=== PATIENT | female | born 1950 | race Caucasian/White ===

== ENCOUNTER 2019-02-24 11:33 | Day surgery (SDC) | payer MEDICARE, OTHER, SELFPAY ==
[~2019-02-24] VITALS: Ht 157.5 cm; Wt 75.7 kg
[~2019-02-24 11:33] MED LIST: ACET325 PO; ALBU90OI; ALBU90OI61 INH; ASPI325B; ASPI81CH PO; ATEN50; AZIT500 PO; Acidophilus La1 EACH PO; Allergy25 M1 PO; BENAML10/5; CAND32; CHOL10002; CLOB.05TC TP; CLON.5; CLOP75; CYAN1000 PO; CYCL10 PO; DELTASONE20 MG PO; DEXA4 PO; DILT60 PO; Dyazide 37.5-21 EACH PO; FLUC100 PO; FURO20 PO; HYDACE5 PO; HYDCHL25; LOVA20; METO50 PO; METO50ER PO; METTREX2.5 PO; NAPR220 PO; NAPR500 PO; NEOMYCIN/POLYMYXIN/H; NEUPOGEN300 MCG/0. IJ; NITR.4SL; NYSTRITC TOP; OLME20 PO; OLME40 PO; OMEP20ER; OMEP20ER PO; ONDA8 PO; OXYACE5T PO; PANT40; POLY17UD PO; Pedi-Dri 100,0060 GM; QVAR7.3 G1 INH; RANI150 PO; SPIR25; SPIRIVA RESPIMAT4 GM IH; TRIHYD253B PO; VITNEPH PO; Zestril40 MG; Zestril40 MG PO
--- NOTE | 2019-02-24 12:49 | NUR ---
02/24/[address] POLK OF PT USING INHALERS 4XDAY AND SMOKING. PT HAS WHZ'S IN HER LEFT UPPER LUNG FIELD. ALBUTEROL UPDRAFT ORDERED/GIVEN
== END 2019-02-24 14:23 | disposition home or self-care (01) ==
LOC: ORSCSDS 11:33
PROVIDERS: Internal Medicine Gastroenterology
PROC: 0DBM8ZX Excision of Descending Colon, Via Natural or Artificial Opening Endoscopic, Diagnostic (ICD-10-PCS; principal; 2019-02-24 13:00)
PROC: 0DBN8ZX Excision of Sigmoid Colon, Via Natural or Artificial Opening Endoscopic, Diagnostic (ICD-10-PCS; principal; 2019-02-24 13:00)
DX: R19.4 Change in bowel habit (principal); K57.30 Diverticulosis of large intestine without perforation or abscess without bleeding; K63.5 Polyp of colon; K64.8 Other hemorrhoids; Z86.010 Personal history of colon polyps; I10 Essential (primary) hypertension; I25.10 Atherosclerotic heart disease of native coronary artery without angina pectoris; F17.210 Nicotine dependence, cigarettes, uncomplicated; J44.9 Chronic obstructive pulmonary disease, unspecified; Z99.81 Dependence on supplemental oxygen; Z79.899 Other long term (current) drug therapy
CPT/HCPCS: 88305; J2704; J7120

== ENCOUNTER → 2019-08-12 | Outpatient (CLI) | payer MEDICARE, OTHER | END | disposition home or self-care (01) | LOC: LAB SHORT 10:23 → LAB 10:23 | DX: L08.0 Pyoderma (principal) | CPT/HCPCS: 87070; 87077; 87147; 87186; 87205 ==

== ENCOUNTER → 2021-03-21 | Outpatient (CLI) | payer MEDICARE, OTHER | END | disposition home or self-care (01) | LOC: LAB SHORT 12:33 → LAB 12:33 | DX: L30.8 Other specified dermatitis (principal) | CPT/HCPCS: 88305; 88312 ==

== ENCOUNTER → 2021-07-11 | Outpatient (CLI) | payer MEDICARE, OTHER | END | disposition home or self-care (01) | LOC: LAB SHORT 12:00 → LAB 12:00 | DX: H60.23 Malignant otitis externa, bilateral (principal) | CPT/HCPCS: 87070; 87077; 87186 ==

== ENCOUNTER 2022-07-19 12:50 | Inpatient (IN) | payer MEDICARE, OTHER ==
[~2022-07-19] VITALS: Ht 157.5 cm; Wt 77.7 kg
[2022-07-19] MEDS ORDERED: SPIR25 PO (13:19)
[2022-07-19] MEDS ORDERED: FURO40 PO (13:20)
[2022-07-19 15:43] LABS: BASOPHILS ABSOLUTE AUTO 0.03 K/mm3 (0.00-0.23); BASOPHILS PERCENT AUTO 0 % (0-2); EOSINOPHILS PERCENT AUTO 3 % (0-6); Hematocrit 49.2 % (33.0-51.0); Hemoglobin 15.5 g/dL (11.5-16.0); IMMATURE GRAN ABSOLUTE AUTO 0.03 K/mm3 (0.00-0.10); IMMATURE GRAN PERCENT AUTO 0 % (0-1); LYMPHOCYTES ABSOLUTE AUTO 0.87 K/mm3 (0.84-5.20); LYMPHOCYTES PERCENT AUTO 11 % (21-46); MONOCYTES ABSOLUTE AUTO 0.34 K/mm3 (0.16-1.47); MONOCYTES PERCENT AUTO 4 % (4-13); Mean Corpuscular HGB 29.4 pg (26.0-34.0); Mean Corpuscular HGB Conc 31.5 g/dL (31.5-36.5); Mean Corpuscular Volume 93 fL (80-100); Mean Platelet Volume 9.7 fL (9.1-12.4); NEUTROPHILS ABSOLUTE AUTO 6.31 K/mm3 (1.96-9.15); NEUTROPHILS PERCENT AUTO 81 % (41-73); Platelet Count 203 K/mm3 (150-400); RDW Coefficient Variation 14.4 % (11.7-14.2); RDW Standard Deviation 49.1 fL (35.1-46.3); Red Blood Cell Count 5.27 M/mm3 (3.80-5.20); White Blood Cell Count 7.78 K/mm3 (4.00-11.30)
[2022-07-19 15:57] LABS: Albumin, Blood 4.1 g/dL (3.4-5.0); Albumin/Globulin Ratio 1.3 (0.8-1.8); Bilirubin, Total 0.5 mg/dL (0.1-1.0); Bun/Creatinine Ratio 17.5 (12.0-20.0); Calcium, Blood 9.7 mg/dL (8.5-10.1); Creatinine, Blood 1.2 mg/dL (0.40-1.00); Globulin, Blood 3.2 g/dL (2.2-4.0); Magnesium, Blood 1.7 mg/dL (1.6-2.4); Phosphorus, Blood 3.2 mg/dL (2.5-4.9); Potassium, Blood 4.5 mmol/L (3.5-5.5); Total Protein, Blood 7.3 g/dL (6.4-8.2)
--- NOTE | 2022-07-19 17:15 | NUR ---
1620 LAB CALLED ELEVATED TROPS 217. CALLED DR MORALES 162. DISCUSSED. HE WILL ORDER FOLLOWUP TROPS AND FOLLOW D-DIMER. NO ORDERS AT THIS TIME.
--- NOTE | 2022-07-19 17:17 | NUR ---
JUST PLACED IV LINE. HAD 3 RNS PERFORMING TASK. STARTED IVF.
--- NOTE | 2022-07-19 17:19 | NUR ---
PT ADMITTED WALK IN FROM [facility]. DID QUICK ADMIT AND MEDS. CALLED DR GALLEGOS. AFTER HE SAW PT. DID BALANCE OF ADMIT. HAD HARD TIME PLACING IV. THIS DONE, IVF STARTED.
--- NOTE | 2022-07-19 17:21 | NUR ---
PT PLEASANT SINCE ADMIT. HAS HAD ECHO, CHEST XRAY, IV PLACED. EKG. LABS DRAWN. PT PRESENTLY RESTING. SOME TIRED. ON 4L O2 AT THIS TIME. A/O X3, PLEASANT , DAUGHTER IN LAW IN ROOM. PT DENIES PAIN. H/R REG, NO MURMUR NOTED. NO TELE. ELEVATED TROPS AND D-DIMER. DR NOTIFIED. LUNGS WHEEZES T/O. DIM. PT STATES NO ISSUES WITH URINATION, BM LAST WAS TODAY. STATES NORMAL. 1 MIN ASST FWW TO BATHROOM.NO OTHER CONCERNS NOTED. BED IN LOW POSITION, CALL LITE IN REACH, CALLS APPROP
[2022-07-20 00:40] LABS: BASOPHILS ABSOLUTE AUTO 0.01 K/mm3 (0.00-0.23); BASOPHILS PERCENT AUTO 0 % (0-2); EOSINOPHILS ABSOLUTE AUTO 0.02 K/mm3 (0.00-0.68); EOSINOPHILS PERCENT AUTO 0 % (0-6); Hematocrit 45.4 % (33.0-51.0); Hemoglobin 14.4 g/dL (11.5-16.0); IMMATURE GRAN ABSOLUTE AUTO 0.02 K/mm3 (0.00-0.10); IMMATURE GRAN PERCENT AUTO 0 % (0-1); LYMPHOCYTES ABSOLUTE AUTO 0.46 K/mm3 (0.84-5.20); LYMPHOCYTES PERCENT AUTO 6 % (21-46); MONOCYTES ABSOLUTE AUTO 0.03 K/mm3 (0.16-1.47); MONOCYTES PERCENT AUTO 0 % (4-13); Mean Corpuscular HGB 29.1 pg (26.0-34.0); Mean Corpuscular HGB Conc 31.7 g/dL (31.5-36.5); Mean Corpuscular Volume 92 fL (80-100); Mean Platelet Volume 9.8 fL (9.1-12.4); NEUTROPHILS PERCENT AUTO 94 % (41-73); Platelet Count 191 K/mm3 (150-400); RDW Coefficient Variation 14.2 % (11.7-14.2); RDW Standard Deviation 48.5 fL (35.1-46.3); Red Blood Cell Count 4.94 M/mm3 (3.80-5.20); White Blood Cell Count 8.24 K/mm3 (4.00-11.30)
[2022-07-20 01:01] LABS: Albumin, Blood 3.6 g/dL (3.4-5.0); Albumin/Globulin Ratio 1.1 (0.8-1.8); Bilirubin, Total 0.5 mg/dL (0.1-1.0); Bun/Creatinine Ratio 19.4 (12.0-20.0); Calcium, Blood 9.5 mg/dL (8.5-10.1); Creatinine, Blood 1.44 mg/dL (0.40-1.00); Globulin, Blood 3.2 g/dL (2.2-4.0); Magnesium, Blood 1.6 mg/dL (1.6-2.4); Phosphorus, Blood 2.8 mg/dL (2.5-4.9); Potassium, Blood 4.5 mmol/L (3.5-5.5); Total Protein, Blood 6.8 g/dL (6.4-8.2)
--- NOTE | 2022-07-20 04:22 | NUR ---
SHIFT SUMMARY NOC PT A/OX4. PT ON O2 4L/NC WITH SPO2 OF 95%. PT TROPONIN STILL ELEVATED AT 165 BUT IS TRENDING DOWNWARD. PT D-DIMER ON 07/19/22 WAS .92 AND AM LABS ARE PENDING. PT HAS WHEEZES IN ALL ROWE. PT IS 1PA WITH FWW. PT HAD PT/OT EVAL 07/19/22. RT GAVE PT BREATHING TX DURING SHIFT. PT HAS 1/2 NS INFUSING AT @ 50mls/hr. PT HAD C/O LEG CRAMPS DURING BEGINNING OF SHIFT THAT SUBSIDED, WILL CONTINUE TO MONITOR. PT IS CURRENTLY RESTING WITH BED RAILS UP, BED IN LOWEST POSITION, AND CALL LIGHT WITHIN REACH.
--- NOTE | 2022-07-20 07:30 | NUR ---
recvd report from previous shift rn, pt sleeping in bed, bed rails up x 2, call light within reach, bed in lowest position.
--- NOTE | 2022-07-20 11:56 | NUR ---
0930-PT in with patient 1020-pt's daughter visiting 1140-pt receiving breathing treatment from RT
--- NOTE | 2022-07-20 13:34 | NUR ---
pt's peripheral IV infiltrated, multiple attempts by RN and optical sales associate failed to start peripheral IV. Awaiting power glide insertion by surgial floor RN. Pt notified of wait. Provider notified.
--- NOTE | 2022-07-20 17:15 | NUR ---
PT'S FAMILY MEMBER IN WITH PT. SHIF SUMMARY: VSS, NO ACUTE CHANGES. PT REMAINED A/O X 4, PLEASANT/COOPERATIVE, STANDBY ASSIST TO BATHROOM T/O SHIFT. PT HAS POWERGLIDE ELVIS STARTED THIS SHIFT. PT HAS TOLERATED PO INTAKE, HAS APPEARED TO HAVE NAPPED X 2 THIS SHIFT, HAS BEEN UP IN CHAIR X 2 THIS SHIFT.
--- NOTE | 2022-07-21 04:53 | NUR ---
SHIFT SUMMARY NOC PT A/OX4. VSS. STILL ON O2 4L/NC. PT EXHIBITS SOB UPON EXERTION. PT HAS A PRODUCTIVE COUGH WITH SCANT THICK SPUTUM. PG IN ELVIS IS PATENT AND DRAWS. PT PG IS CURRENTLY INFUSING 1/2 NS KVO. PT AMBULATING WELL WITH 1PA FWW. PT IS CURRENTLY AWAKE DRINKING WATER, WITH BED RAILS UP, BED IN LOWEST POSITION, AND CALL LIGHT WITHIN REACH.
[2022-07-21 07:32] LABS: Albumin, Blood 3.2 g/dL (3.4-5.0); Anion Gap 7 mmol/L (6-16); Blood Urea Nitrogen 35 mg/dL (8-24); Bun/Creatinine Ratio 27.8 (12.0-20.0); CO2, Blood 29 mmol/L (21-32); Calcium, Blood 9.2 mg/dL (8.5-10.1); Chloride, Blood 99 mmol/L (98-108); Creatinine, Blood 1.26 mg/dL (0.40-1.00); Glomerular Filtration Rate 46 (60-); Glucose, Blood 140 mg/dL (70-99); Phosphorus, Blood 3.6 mg/dL (2.5-4.9); Potassium, Blood 4.8 mmol/L (3.5-5.5); Sodium, Blood 135 mmol/L (136-145)
--- NOTE | 2022-07-21 11:26 | NUR ---
CARE ASSUMPTION THIS RN ASSUMED CARE AT 0700 FROM AMBAR BOWEN. VSAnalisa. PATIET IS ALERT AND ORIENTED X4. REPORTS NO PAIN,CHEST PAIN OR SHORTNESS OF BREATH. PATIENT ABD IS SOFT NONTENDER AND ACTIVE. SKIN IS INTACT. SEE SHIFT ASSESSMENT FOR FURTHER DETAILS. MD BURDEN IN THE ROOM AND DISCUSSED THE PLAN OF CARE WITH THE PATIENT. MD BURDEN AND THIS RN OFFERED ALTERNATIVE MEASURE TO SMOKING. PATIENT BECAME TEARFUL AND THERAOEUTIC COMMUNICATION WAS USED. THIS RN PRINTED OFF ADITIONAL INFORMATION AND OFFERE ADDITIONAL INFORMATION ON THE ZIN POUCHES THAT WERE DISCUSSED. PLAN IS TO DISCHARGE PATIENT TODAY WITH A HOME HEALTH REFERRAL. PATIENT VERABLIZES UNDERSTANDING AND AGREES WITH PLAN OF CARE. BED IS IN LOWEST POSITION AND CALL LIGHT WITHIN REACH.
[2022-07-21] MEDS ORDERED: Prinivil10 MG PO (13:12)
[2022-07-21] MEDS ORDERED: Prednisone50 MG PO (13:14)
[2022-07-21] MEDS ORDERED: GUAI600T33 PO (13:14)
[2022-07-21] MEDS ORDERED: NICO21TP TOP (13:14)
[2022-07-21] MEDS ORDERED: AMOCLA875 PO (13:15)
[2022-07-21] MEDS ORDERED: AZIT250 PO (13:16)
--- NOTE | 2022-07-21 16:50 | NUR ---
DISCHARGE NOTE THIS RN EDUCATED THE PATIENT ON NEW MEDICATIONS AND THE IMPORTANCE OF TAKING ALL ABX. THIS PATIENT EDUCATED THE PATIENT ON FOLLOW UP APPOINTMENTS. PATIENT VERBALIZED UNDERSTANDING. PATIENT HAS ALL BELONGINGS WITH THE PATIENT WHEN LEAVING AND DISCHARGE EDUCATION. PATIENT LEFT IN NO DISTRESS.
== END 2022-07-21 16:21 | disposition home health service (06) | DRG 189 ==
LOC: MEDS 12:50
PROVIDERS: Family Medicine; ADMIT Hospitalist
DX: J96.01 Acute respiratory failure with hypoxia (principal); J44.1 Chronic obstructive pulmonary disease with (acute) exacerbation; D80.1 Nonfamilial hypogammaglobulinemia; I50.32 Chronic diastolic (congestive) heart failure; I13.0 Hypertensive heart and chronic kidney disease with heart failure and stage 1 through stage 4 chronic kidney disease, or unspecified chronic kidney disease; Z66 Do not resuscitate; Z28.21 Immunization not carried out because of patient refusal; K21.9 Gastro-esophageal reflux disease without esophagitis; N18.30 Chronic kidney disease, stage 3 unspecified; M85.80 Other specified disorders of bone density and structure, unspecified site; I25.10 Atherosclerotic heart disease of native coronary artery without angina pectoris; E78.5 Hyperlipidemia, unspecified; M47.813 Spondylosis without myelopathy or radiculopathy, cervicothoracic region; F17.210 Nicotine dependence, cigarettes, uncomplicated; I71.43 Infrarenal abdominal aortic aneurysm, without rupture; L40.9 Psoriasis, unspecified; Z99.81 Dependence on supplemental oxygen; Z95.5 Presence of coronary angioplasty implant and graft; Z90.710 Acquired absence of both cervix and uterus; Z88.8 Allergy status to other drugs, medicaments and biological substances; Z79.51 Long term (current) use of inhaled steroids; Z79.899 Other long term (current) drug therapy
CPT/HCPCS: 36415; 71046; 80053; 80069; 83605; 83735; 83880; 84100; 84484; 85025; 85379; 87040; 93005; 93010; 93306; 94640; 94664; 94760; 96365; 96366; 96367; 96372; 96375; 96376; 97110; 97116; 97161; 97165; 97535; A9270; C1751; G0378; J0456; J0696; J1644; J1940; J2930; J3475; J7050; J7060

== ENCOUNTER 2022-08-17 08:24 | Inpatient (IN) | payer MEDICARE, OTHER ==
[~2022-08-17] VITALS: Ht 160 cm; Wt 80.1 kg
[~2022-08-17 08:24] MED LIST changes: +AMOCLA875 PO; +AZIT250 PO; +FURO40 PO; +GUAI600T33 PO; +NICO21TP TOP; +Prednisone50 MG PO; +Prinivil10 MG PO; +SPIR25 PO
[2022-08-17 09:04] LABS: BASOPHILS ABSOLUTE AUTO 0.05 K/mm3 (0.00-0.23); BASOPHILS PERCENT AUTO 1 % (0-2); EOSINOPHILS PERCENT AUTO 1 % (0-6); Hematocrit 41.1 % (33.0-51.0); IMMATURE GRAN ABSOLUTE AUTO 0.05 K/mm3 (0.00-0.10); IMMATURE GRAN PERCENT AUTO 1 % (0-1); LYMPHOCYTES ABSOLUTE AUTO 1.33 K/mm3 (0.84-5.20); LYMPHOCYTES PERCENT AUTO 13 % (21-46); MONOCYTES ABSOLUTE AUTO 0.48 K/mm3 (0.16-1.47); MONOCYTES PERCENT AUTO 5 % (4-13); Mean Corpuscular HGB 29.2 pg (26.0-34.0); Mean Corpuscular HGB Conc 31.6 g/dL (31.5-36.5); Mean Corpuscular Volume 92 fL (80-100); Mean Platelet Volume 9.6 fL (9.1-12.4); NEUTROPHILS PERCENT AUTO 80 % (41-73); Platelet Count 267 K/mm3 (150-400); RDW Coefficient Variation 14.7 % (11.7-14.2); RDW Standard Deviation 49.1 fL (35.1-46.3); Red Blood Cell Count 4.45 M/mm3 (3.80-5.20); White Blood Cell Count 10.31 K/mm3 (4.00-11.30)
[2022-08-17 09:19] LABS: Albumin, Blood 3.5 g/dL (3.4-5.0); Albumin/Globulin Ratio 1.1 (0.8-1.8); Bilirubin, Total 0.4 mg/dL (0.1-1.0); Bun/Creatinine Ratio 21.4 (12.0-20.0); Calcium, Blood 8.7 mg/dL (8.5-10.1); Creatinine, Blood 1.31 mg/dL (0.40-1.00); Globulin, Blood 3.1 g/dL (2.2-4.0); Potassium, Blood 3.7 mmol/L (3.5-5.5); Total Protein, Blood 6.6 g/dL (6.4-8.2)
[2022-08-17 10:03] LABS: Influenza A, PCR NEGATIVE (NEGATIVE); Influenza B, PCR NEGATIVE (NEGATIVE); Resp Syncytial Virus, PCR NEGATIVE (NEGATIVE); SARS-Cov-2 (COVID-19) PCR, MMC NEGATIVE (NEGATIVE)
[2022-08-17] MEDS ORDERED: ELIQUIS5 M2 PO (17:06)
[2022-08-17] MEDS ORDERED: BUPROPION XL150 M1 PO (17:08)
--- NOTE | 2022-08-17 18:45 | NUR ---
ADMIT 1700 FULL CODE, ALLERGY TO PROCAINE AND IRBESARTAN. 72 YEar old FEMALE RESPIRATORY FAILURE SECONDARY TO PNEUMONIA APPEARS TO BE THE DIAGNOSIS. patient has a history of cad, gerd, htn, ckd iii, NON HODGKINS LYMPHOMA, CERVICAL THORASIC SPONDYLOSIS, OSTEOPENIA, PSORIASIS, DIASTOLIC DYSFUNCTION PATIENT IS ON ADA DIET BECASUE OF STEROID ADMINISTRATION PER DR RIVERA, SHE IS NOT DIABETIC. PATIENT USES 2 LITERS O2 BASELINE AT HOME. SINCE ER SHE HAS BEEN ON 2-3 NC. IV FLUID (NS WITH K) IS RUNNING AT 100. SOLUMEDEROL WAS GIVEN AT 1757, SO THE NEXT DOSE SHOULD BE 8 HOURS THERE AFTER. PATIENT IS ALERT AND ORIENTATED AND ABLE TO MAKE NEEDS KNOWN. SHE IS UP THE THE BATHROOM WITH SBA (DIZZY DUE TO FENTYNL IN ER) AT HOME SHE AMBULATES WITHOUT A WALKER AND LIVES ALONE. PATIENT WAS INSTRUCTED ON THE USE OF THE CALL LIGHT, RESPONSE TEAM, AND FALL PRECAUTIONS. ADMISSION IN PROGRESS. ALT AND AST HIGH. GFR LOW (44)
[2022-08-18 01:19] LABS: BASOPHILS ABSOLUTE AUTO 0.01 K/mm3 (0.00-0.23); BASOPHILS PERCENT AUTO 0 % (0-2); EOSINOPHILS PERCENT AUTO 0 % (0-6); Hematocrit 36.8 % (33.0-51.0); Hemoglobin 11.8 g/dL (11.5-16.0); IMMATURE GRAN ABSOLUTE AUTO 0.05 K/mm3 (0.00-0.10); IMMATURE GRAN PERCENT AUTO 1 % (0-1); LYMPHOCYTES ABSOLUTE AUTO 0.35 K/mm3 (0.84-5.20); LYMPHOCYTES PERCENT AUTO 5 % (21-46); MONOCYTES PERCENT AUTO 3 % (4-13); Mean Corpuscular HGB 29.8 pg (26.0-34.0); Mean Corpuscular HGB Conc 32.1 g/dL (31.5-36.5); Mean Corpuscular Volume 93 fL (80-100); Mean Platelet Volume 9.8 fL (9.1-12.4); NEUTROPHILS PERCENT AUTO 92 % (41-73); Platelet Count 205 K/mm3 (150-400); RDW Coefficient Variation 14.5 % (11.7-14.2); RDW Standard Deviation 48.9 fL (35.1-46.3); Red Blood Cell Count 3.96 M/mm3 (3.80-5.20); White Blood Cell Count 7.41 K/mm3 (4.00-11.30)
[2022-08-18 01:39] LABS: Bilirubin, Total 0.3 mg/dL (0.1-1.0); Bun/Creatinine Ratio 21.5 (12.0-20.0); Calcium, Blood 8.2 mg/dL (8.5-10.1); Creatinine, Blood 1.3 mg/dL (0.40-1.00); Potassium, Blood 4.9 mmol/L (3.5-5.5)
--- NOTE | 2022-08-18 06:12 | NUR ---
ACUTE EVENT APROX 2130 DURING MED PASS/ASSESSMENT RCVD CALL F/PUNCH FINISHER; HOWARD PORTILLO; TECH REPORTING PT WAS SHOWING ST ELEVATION IN MUTIPLE LEADS. AT SAME TIME PT BEGAN T/EXPERIENCE CHEST PAIN RADIATING TO HER BACK AND SUDDEN INDIGESTION. MADE TWO ATTEMPTS TO GET EKG; READINGS WERE DIFFICULT TO GET BECAUSE PT WAS TREMULOUS. CALL TO DR JOINER TO INFORM. NEW ORDER TO TREAT PAIN WITH FENTANYL 25MCG AND ATTEMPT NEW EKG. NEW TROPONIN LAB 71. FINAL EKG SHOWED SINUS RHYTHM W/1ST DEGREE AV BLOCK WITH PREMATURE SUPRAVENTRICULAR COMPLEX. HOWARD PORTILLO/Yandex UPDATED ST ELEVATION UNDER 2. NOTIFIED; WILL CONT T/MONITOR. PT REPORTING PAIN HAD RESOLVED.
--- NOTE | 2022-08-18 06:25 | NUR ---
SUBASSEMBLY ASSEMBLER SUMMARY EPISODE OF ST ELEVATION AND PT C/O CHEST PAIN; SEE ALT NOTE ABOUT ACUTE EVENT. PT A/OX4. PLEASANT AND COOPERATIVE. SBA W/FWW T/THE BATHROOM. ON 3L 02 NC; ON TELE; SINUS W/BBB AND ST ELEVATION; 84 BPM. ABLE T/MAKE NEEDS KNOWN AND USES CALL LIGHT APPROPRIATELY. RT AT BEDSIDE T/O THE NIGHT W/BREATHING TREATMENTS AND MONITORING A SLEEP STUDY. PT SLEEP STUDY STARTED LATE AND MULTIPLE INTERUPTIONS DUE TO CARDIAC EVENT/LAB. RT STATES WILL LIKELY REPEAT STUDY AGAIN. PT WAS ABLE TO SLEEP INTERMITTANTLY AND AFTER EVENT HAD ONE MORE EPISODE OF BRIEF CHEST PAIN RADIATING T/BACK WHICH RESOLVED; PER TELE NO CHANGES DURING EPISODE OF CP. OBSERVED HARSH COUGH; UNPRODUCTIVE. PT ON 3L NC BUT HAVING PERIODIC EPISODES OF DESAT INTO 80'S WHEN COUGHING. CALL LIGHT IN REACH.
--- NOTE | 2022-08-18 16:01 | NUR ---
PATIENT HAS HAD NO COMPLAINTS OF CHEST PAIN THIS SHIFT. [employer] HAS NOT CALLED TO REPORT ANY ADVERSE EVENTS SO FAR. SHE DID HAVE ESOPHAGEAL PAIN WITH SWALLOWING PREVIOUS NURSING NOTE STATES. PATIENT FINISHED 2ND BAG OF NACL, WITH K AT 1545. SHE IS REQUESTING AN ORDER FOR NATURAL TEARS (SYSTANE). WE WILL CHECK WITH THE PROVIDER UPON HIS ARRIVAL.
--- NOTE | 2022-08-18 17:31 | NUR ---
PATIENT HAVING NO EPISODES OF CHEST PAIN THIS SHIFT. NS WITH K FINISHED UP LATE THIS AFTERNOON. PROVIDER MIGUEL HERE NOW. NEW ORDERS FOR ECHO AND TROP. PATIENT ALERT AND ABLE TO STATE NEEDS. ECHO ORDERED BECAUSE OF BNP ELEVATION AND CONDITION. DESIRE TO SEE ANY ACUTE EVENTS WITH LAB AND TESTS.
--- NOTE | 2022-08-18 18:39 | NUR ---
#2 SHIFT SUMMARY- DR. RIVERA WAS HERE, ORDERED ECHO AND SERIES OF TROP. PATIENT IS ABLE TO EAT DINNER. SHE IS ASYMPTOMATIC OF CHEST PAIN. TELE CALLED AND REPORTED ST EVEVATION. PATIENT HAS NO CHANGE. 40 MG IV LASIX STAT WAS GIVEN. PROVIDER WANTED PLAN PASSED HANNA THAT THE ECHO WOULD HAPPEN IN THE MORNING, THE SERIES OF TROPONIN WOULD BE COMPLETED, AND TO NOTE THAT THE LAST TIME THIS PATIENT ADMITTED FOR SIMILAR EVENTS, THE SAME SYMPTOMS AND RESULTS WERE SEEN, BUT NO SIGNIFICANT EVENT TOOK PLACE.
--- NOTE | 2022-08-18 20:17 | NUR ---
CARDIAC EVENT/EKG PT C/O MILD CHEST PAIN. CALL T/HOT WORT SETTLER, HOWARD LINDSEY--TECH REPORTS ST ELEVATION BETWEEN 2-3. EKG DONE SHOWING AFIB W/RVR, 107 BPM. PT REPORTS SHE TAKES METOPROLOL 25MG 2X DAILY--LAST TAKEN 08/16/[address] HICKS. ORDER T/RESTART METOPROLOL NOW, AND NEW ORDER FOR 81MG ASPRIN DAILY. DR Mata/REVIEW EKG AND FOLLOW UP. PT SHEDULED F/ECHO AM TOMORROW. PT A/OX4 W/MILD CHEST PAIN AND FEELING SOB; PT SATURTATIONS 93%. WILL CONT T/MONITOR; PT DAUGHTER AT BEDSIDE. EDUCATE PT T/CONTACT W/ANY PAIN OR CHANGES.
[2022-08-18 22:45] LABS: International Normalized Ratio 1.12; Prothrombin Time Results 11.7 Sec (9.7-11.5)
[2022-08-18 22:46] LABS: Anti-Xa UFH, PHA Monitoring 1.28 IU/mL
[2022-08-19 01:33] LABS: Bun/Creatinine Ratio 23.1 (12.0-20.0); Calcium, Blood 8.9 mg/dL (8.5-10.1); Creatinine, Blood 1.47 mg/dL (0.40-1.00); Magnesium, Blood 1.8 mg/dL (1.6-2.4); Potassium, Blood 4.5 mmol/L (3.5-5.5)
--- NOTE | 2022-08-19 01:53 | NUR ---
PT TRANSFER NOTE PT TRANSFERED TO PCU 2 PT HAVING CHEST PAIN INTERMITTANTLY FOR LAST 24HRS; TELE REPORTED RUN OF 6 BEAT RUN OF SVT, ST ELEVATION ABOVE 3, HR SPIKING UP IN 160'S AND SUSTAINING IN 130/140'S. CALL T/DR BRAND; ORDER F/10MG CAREDIZEM PUSH AND NEW EKG; EKG READ AFIB W/RVR 123BPM. UPDATED DR BRAND OF RESULTS--ORDER F/XFER T/PCU FOR CARDIZEM DRIP.
--- NOTE | 2022-08-19 03:49 | NUR ---
PT TRANSFER TO PCU 2: PT ARRIVED TO UNIT AT 0211. PT IS A&O UPON ARRIVAL; VERY PLEASANT AND PARTICIPATING IN CONVERSATIONS APPROPRIATELY. PT ON NV @ 3LPM UPON ARRIVAL; SPO2 92<. PT LUNGS SOUNDS CLEAR WITH DIM BASES. AFIB WITH RVR ON MONITOR; HR IN 90-130'S AND SBP 120-130. PT HAS R. UPPER CHEST PAIN, 7/10, AT THIS TIME. CARDIZEM DRIP INTIATED AT 5. PT STATES POLYURIA SINCE STARTING LASIX; PUREWIICK PLACED AND ON CONTINUOUS SUCTIONING. PT PLACED IN GOWN AND PERSONAL ITEMS STORED IN PT BAG. PT HAS NO OTHER C/O PAIN. HYPERACTIVE BS IN ALL QUADRANTS; ABD OBESE, ROUND AND NON-TENDER. PPP X 4, WARM EXTREMITIES. PT USES CALL LIGHT APPROPRIATELY, BED LOWERED, WILL CONTINUE TO MONITOR.
[2022-08-19 04:34] LABS: Albumin, Blood 3.4 g/dL (3.4-5.0); Albumin/Globulin Ratio 1.1 (0.8-1.8); Bilirubin, Total 0.3 mg/dL (0.1-1.0); Bun/Creatinine Ratio 25.4 (12.0-20.0); Calcium, Blood 9.2 mg/dL (8.5-10.1); Creatinine, Blood 1.42 mg/dL (0.40-1.00); Globulin, Blood 3.2 g/dL (2.2-4.0); Potassium, Blood 4.2 mmol/L (3.5-5.5); Total Protein, Blood 6.6 g/dL (6.4-8.2)
--- NOTE | 2022-08-19 06:26 | NUR ---
SHIFT SUMMARY: NO ACUTE CHANGES. PT HAS SLEPT SINCE TRANSFERRED TO UNIT. CARDIZEM GTT @ 5; AFIB RYTHYM ON MONITOR WITH HR 70-90, SBP 100-110. NC @ 4 LPM TO MAINTAIN O2 SATS. PT C/O EXERTIONAL DSPNEA WHEN REPOSITIONING IN BED. MED FLOOR RN, KATYA, NOTIFIED THIS RN OF MULT ATTEMPTS TO CONTACT PT'S DAUGHTER REGARDING TRANSFER. PT NOTIFED THAT DAUGHTER WAS NOT REACHABLE AT THIS TIME; PT STATED SHE WOULD TRY AND GET IN CONTACT WITH HER. WILL PASS THIS INFO TO DAY SHIFT RN. WILL CONTINUE TO MONITOR UNTIL ONCOMING RN ARRIVES.
--- NOTE | 2022-08-19 07:00 | NUR ---
ASSUME CARE: I have assumed care of this patient.
--- NOTE | 2022-08-19 19:03 | NUR ---
SHIFT SUMMARY: pt up to chair and to commode with standby assist. Cardizem drip stopped around ten this morning for bradycardia. Cardiology consulted this afternoon. Tolerated meals well.
[2022-08-20 04:38] LABS: Calcium, Blood 9.2 mg/dL (8.5-10.1); Creatinine, Blood 1.68 mg/dL (0.40-1.00); Magnesium, Blood 1.7 mg/dL (1.6-2.4); Potassium, Blood 3.7 mmol/L (3.5-5.5); Thyroid Stimulating Hormone 0.607 uIU/mL (0.360-4.800)
--- NOTE | 2022-08-20 06:25 | NUR ---
SHIFT SUMMARY A/OX4, IND TO BSC. DENIES PAIN OR SOB. CURRENTLY ON 3L VIA NC WITH SATS GREATER THAN 92. TELE SR/AFIB T/O NIGHT WITH HR RANGING FROM 70'S-100. VSS, NO ACUTE CHANGES AT THIS TIME. BED IN LOWEST POSITION WITH CALL LIGHT IN REACH. WILL CONTINUE TO MONITOR AND REPORT TO ONCOMING RN.
[2022-08-20 10:23] LABS: BASOPHILS ABSOLUTE AUTO 0.01 K/mm3 (0.00-0.23); BASOPHILS PERCENT AUTO 0 % (0-2); EOSINOPHILS PERCENT AUTO 0 % (0-6); Hematocrit 41.7 % (33.0-51.0); Hemoglobin 13.5 g/dL (11.5-16.0); IMMATURE GRAN ABSOLUTE AUTO 0.17 K/mm3 (0.00-0.10); IMMATURE GRAN PERCENT AUTO 2 % (0-1); LYMPHOCYTES ABSOLUTE AUTO 0.39 K/mm3 (0.84-5.20); LYMPHOCYTES PERCENT AUTO 4 % (21-46); MONOCYTES ABSOLUTE AUTO 0.21 K/mm3 (0.16-1.47); MONOCYTES PERCENT AUTO 2 % (4-13); Mean Corpuscular HGB Conc 32.4 g/dL (31.5-36.5); Mean Corpuscular Volume 90 fL (80-100); Mean Platelet Volume 10.3 fL (9.1-12.4); NEUTROPHILS ABSOLUTE AUTO 8.12 K/mm3 (1.96-9.15); NEUTROPHILS PERCENT AUTO 91 % (41-73); Platelet Count 235 K/mm3 (150-400); RDW Coefficient Variation 14.7 % (11.7-14.2); RDW Standard Deviation 46.9 fL (35.1-46.3); Red Blood Cell Count 4.65 M/mm3 (3.80-5.20)
--- NOTE | 2022-08-20 17:47 | NUR ---
SHIFT SUMMARY PT ALERT, FOLLOWS COMMANDS. SP02>90% ON 2L NC. PT STATED HER BREATHING FEELS "MUCH BETTER" TODAY. VSS, SEE VITALS. PT C/O OF TROUBLE SWALLOWING BREAKFAST. STATES HX OF HIATAL HERNIA, AND OCCASIONALLY "FOOD GETS STUCK". MD LEDESMA NOTIFIED AND W/ ORDERS FOR 1 TIME DOSE OF PRILOSEC, WHICH PT TAKES AT HOME FOR THIS ISSUE. PT STATES NO ISSUE THIS AFTERNOON/EVENING. PT RESTED IN ROOM TODAY, STATE SHE DID NOT SLEEP MUCH LAST NIGHT. CALL LIGHT IN REACH.
[2022-08-21 03:56] LABS: BASOPHILS ABSOLUTE AUTO 0.02 K/mm3 (0.00-0.23); BASOPHILS PERCENT AUTO 0 % (0-2); EOSINOPHILS ABSOLUTE AUTO 0.01 K/mm3 (0.00-0.68); EOSINOPHILS PERCENT AUTO 0 % (0-6); Hematocrit 41.1 % (33.0-51.0); Hemoglobin 13.2 g/dL (11.5-16.0); IMMATURE GRAN PERCENT AUTO 2 % (0-1); LYMPHOCYTES ABSOLUTE AUTO 0.49 K/mm3 (0.84-5.20); LYMPHOCYTES PERCENT AUTO 5 % (21-46); MONOCYTES ABSOLUTE AUTO 0.25 K/mm3 (0.16-1.47); MONOCYTES PERCENT AUTO 3 % (4-13); Mean Corpuscular HGB 28.8 pg (26.0-34.0); Mean Corpuscular HGB Conc 32.1 g/dL (31.5-36.5); Mean Corpuscular Volume 90 fL (80-100); Mean Platelet Volume 10.1 fL (9.1-12.4); NEUTROPHILS ABSOLUTE AUTO 8.64 K/mm3 (1.96-9.15); NEUTROPHILS PERCENT AUTO 90 % (41-73); Platelet Count 231 K/mm3 (150-400); RDW Coefficient Variation 14.6 % (11.7-14.2); RDW Standard Deviation 46.6 fL (35.1-46.3); Red Blood Cell Count 4.59 M/mm3 (3.80-5.20); White Blood Cell Count 9.61 K/mm3 (4.00-11.30)
[2022-08-21 04:30] LABS: Bun/Creatinine Ratio 35.3 (12.0-20.0); Calcium, Blood 8.7 mg/dL (8.5-10.1); Creatinine, Blood 1.56 mg/dL (0.40-1.00); Potassium, Blood 3.8 mmol/L (3.5-5.5)
--- NOTE | 2022-08-21 06:27 | NUR ---
SHIFT SUMMARY A/O X4, IND TO BSC. DENIES PAIN OR SOB. TELE SR/AFIB FLIPS. CURRENTLY ON 3L VIA NC WITH SATS GREATER THAN 92. VSS, NO ACUTE CHANGES AT THIS TIME. BED IN LOWEST POSITION WITH CALL LIGHT IN REACH. WILL CONTINUE TO MONITOR AND REPORT TO ONCOMING RN.
[2022-08-21] MEDS ORDERED: TORSE20 PO (12:31)
[2022-08-21] MEDS ORDERED: ASPI81CH PO (12:32)
[2022-08-21] MEDS ORDERED: Acetaminophen325 M1 PO (12:32)
[2022-08-21] MEDS ORDERED: ATOR20 PO (12:33)
[2022-08-21] MEDS ORDERED: JARDIANCE10 MG PO (12:34)
[2022-08-21] MEDS ORDERED: Isosorbide Mono30 MG PO ×2 (12:35)
[2022-08-21] MEDS ORDERED: METO50ER PO ×2 (12:36)
[2022-08-21] MEDS ORDERED: SPIR25 PO (12:38)
[2022-08-21] MEDS ORDERED: NITR.4SL SL (12:38)
[2022-08-21] MEDS ORDERED: VISBIOME 112.51 EACH PO ×2 (12:39)
--- NOTE | 2022-08-21 16:19 | NUR ---
DISCHARGE HOME PT A&O X4. VSS. MONITOR SHOWING SR W/ RATE INDUCED ABBERANCY. SPO2 > 92% ON RA. PIV REMOVED. DISCHARGE INSTRUCTIONS REVIEWED W/ PT & SENT HOME W/ PT. PT TAKEN OUT BY WHEELCHAIR W/ BELONGINGS @ APPROX 1500.
== END 2022-08-21 15:45 | disposition home health service (06) | DRG 193 ==
LOC: ER 08:24 → MEDS 15:08 → PCU 15:08 → MEDS 17:01 → PCU 08-19 02:07
PROVIDERS: Emergency Medicine; Family Medicine; Internal Medicine; Internal Medicine Cardiovascular Disease; ADMIT Internal Medicine Endocrinology, Diabetes & Metabolism
DX: J18.9 Pneumonia, unspecified organism (principal); I50.43 Acute on chronic combined systolic (congestive) and diastolic (congestive) heart failure; J96.21 Acute and chronic respiratory failure with hypoxia; J44.1 Chronic obstructive pulmonary disease with (acute) exacerbation; I13.0 Hypertensive heart and chronic kidney disease with heart failure and stage 1 through stage 4 chronic kidney disease, or unspecified chronic kidney disease; J44.0 Chronic obstructive pulmonary disease with (acute) lower respiratory infection; I47.1 Supraventricular tachycardia; D80.1 Nonfamilial hypogammaglobulinemia; Z66 Do not resuscitate; K21.9 Gastro-esophageal reflux disease without esophagitis; N18.30 Chronic kidney disease, stage 3 unspecified; R13.10 Dysphagia, unspecified; R77.8 Other specified abnormalities of plasma proteins; F17.210 Nicotine dependence, cigarettes, uncomplicated; L40.9 Psoriasis, unspecified; I48.0 Paroxysmal atrial fibrillation; I25.10 Atherosclerotic heart disease of native coronary artery without angina pectoris; E78.5 Hyperlipidemia, unspecified; M85.80 Other specified disorders of bone density and structure, unspecified site; M47.892 Other spondylosis, cervical region; L30.9 Dermatitis, unspecified; I70.8 Atherosclerosis of other arteries; M47.894 Other spondylosis, thoracic region; I71.43 Infrarenal abdominal aortic aneurysm, without rupture; I08.1 Rheumatic disorders of both mitral and tricuspid valves; K44.9 Diaphragmatic hernia without obstruction or gangrene; Z20.822 Contact with and (suspected) exposure to COVID-19; Z85.72 Personal history of non-Hodgkin lymphomas; Z98.51 Tubal ligation status; Z88.8 Allergy status to other drugs, medicaments and biological substances; Z99.81 Dependence on supplemental oxygen; Z79.899 Other long term (current) drug therapy; Z79.01 Long term (current) use of anticoagulants; Z79.811 Long term (current) use of aromatase inhibitors; Z79.2 Long term (current) use of antibiotics; Z79.52 Long term (current) use of systemic steroids; Z79.51 Long term (current) use of inhaled steroids; Z92.21 Personal history of antineoplastic chemotherapy; Z98.890 Other specified postprocedural states; Z90.710 Acquired absence of both cervix and uterus; Z95.5 Presence of coronary angioplasty implant and graft; Z79.82 Long term (current) use of aspirin; Z86.79 Personal history of other diseases of the circulatory system
CPT/HCPCS: 0241U; 36415; 71045; 80048; 80053; 83735; 83880; 84145; 84443; 84484; 85025; 85520; 85610; 85730; 93005; 93010; 93308; 94640; 94644; 94645; 94664; 94760; 94761; 94762; 96365; 96367; 96368; 96375; 97116; 97162; 99285-25; A9270; J0456; J0696; J1940; J1956; J2405; J2920; J2930; J3010; J3475; J3480; J7050

== ENCOUNTER 2022-08-24 15:46 | Inpatient (IN) | payer MEDICARE, OTHER ==
[~2022-08-24] VITALS: Ht 162.6 cm; Wt 71.3 kg
[~2022-08-24 15:46] MED LIST changes: +ATOR20 PO; +Acetaminophen325 M1 PO; +BUPROPION XL150 M1 PO; +ELIQUIS5 M2 PO; +Isosorbide Mono30 MG PO; +JARDIANCE10 MG PO; +NITR.4SL SL; +TORSE20 PO; +VISBIOME 112.51 EACH PO
[2022-08-24 16:25] LABS: BASOPHILS ABSOLUTE AUTO 0.02 K/mm3 (0.00-0.23); BASOPHILS PERCENT AUTO 0 % (0-2); EOSINOPHILS ABSOLUTE AUTO 0.01 K/mm3 (0.00-0.68); EOSINOPHILS PERCENT AUTO 0 % (0-6); Hematocrit 49.6 % (33.0-51.0); Hemoglobin 16.3 g/dL (11.5-16.0); IMMATURE GRAN ABSOLUTE AUTO 0.09 K/mm3 (0.00-0.10); IMMATURE GRAN PERCENT AUTO 1 % (0-1); LYMPHOCYTES ABSOLUTE AUTO 0.28 K/mm3 (0.84-5.20); LYMPHOCYTES PERCENT AUTO 3 % (21-46); MONOCYTES ABSOLUTE AUTO 0.62 K/mm3 (0.16-1.47); MONOCYTES PERCENT AUTO 6 % (4-13); Mean Corpuscular HGB 29.2 pg (26.0-34.0); Mean Corpuscular HGB Conc 32.9 g/dL (31.5-36.5); Mean Corpuscular Volume 89 fL (80-100); Mean Platelet Volume 10.4 fL (9.1-12.4); NEUTROPHILS ABSOLUTE AUTO 9.21 K/mm3 (1.96-9.15); NEUTROPHILS PERCENT AUTO 90 % (41-73); Platelet Count 179 K/mm3 (150-400); RDW Standard Deviation 47.7 fL (35.1-46.3); Red Blood Cell Count 5.59 M/mm3 (3.80-5.20); White Blood Cell Count 10.23 K/mm3 (4.00-11.30)
[2022-08-24 16:54] LABS: Albumin, Blood 3.5 g/dL (3.4-5.0); Bun/Creatinine Ratio 25.8 (12.0-20.0); Creatinine, Blood 1.63 mg/dL (0.40-1.00); Globulin, Blood 3.4 g/dL (2.2-4.0); Potassium, Blood 3.9 mmol/L (3.5-5.5); Total Protein, Blood 6.9 g/dL (6.4-8.2)
[2022-08-24 20:25] LABS: Influenza B, PCR NEGATIVE (NEGATIVE); Resp Syncytial Virus, PCR NEGATIVE (NEGATIVE); SARS-Cov-2 (COVID-19) PCR, MMC NEGATIVE (NEGATIVE)
[2022-08-24 20:26] LABS: Influenza A, PCR POSITIVE (NEGATIVE)
[2022-08-25 03:31] LABS: Hematocrit 49.3 % (33.0-51.0); Hemoglobin 16.1 g/dL (11.5-16.0); Mean Corpuscular HGB 29.1 pg (26.0-34.0); Mean Corpuscular HGB Conc 32.7 g/dL (31.5-36.5); Mean Corpuscular Volume 89 fL (80-100); Platelet Count 152 K/mm3 (150-400); Red Blood Cell Count 5.53 M/mm3 (3.80-5.20); White Blood Cell Count 7.37 K/mm3 (4.00-11.30)
[2022-08-25 03:53] LABS: Bun/Creatinine Ratio 27.5 (12.0-20.0); Calcium, Blood 8.8 mg/dL (8.5-10.1); Creatinine, Blood 1.67 mg/dL (0.40-1.00); Magnesium, Blood 2.4 mg/dL (1.6-2.4); Potassium, Blood 3.4 mmol/L (3.5-5.5)
--- NOTE | 2022-08-25 06:42 | NUR ---
SHIFT SUMMARY: PT ADMITTED OVER SHIFT. ARRIVED FORM ED ON BIPAP. TRANSFERED TO BED VIA SLIDERSHEET. PT IS A&OX4 BUT MINIMAL ABILITY TO COMMUNICATE DUE TO BIPAP MASK AND HR INCREASING TO 150 WITH EFFORT OF SPEECH. HR IN A-FIB RVR, BETWEEN 80'S WHEN SLEEPING 120'S WHEN AWAKE WITH OCCASIONAL SPIKES TO 150 THAT RETURNS BACK DOWN TO 120'S. IV LOPRESSOR HELD DUE TO SOFT BP'S, MAP > 65. PT IS TACHYPNEIC WHEN ON NC TO TAKE PILLS, UNABLE TO MAINTAIN 02 > 92% ON 4LPM FOR EXTENDED PERIOD OF TIME, DROPPING TO 88%. PLACED BACK ON BIPAP, O2 INCREASED BACK UP TO MID 90'S. DAUGHTER UP TO ROOM AT ADMIT TO GIVEN ADMIT INFORMAITON. BOTH PT AND FAMILY ARE PLEASANT AND COOPERATIVE. DAUGHER LEFT AFTER ADMIT. PT RESTING IN BED, CLAL LIGHT IN REACH.
--- NOTE | 2022-08-25 18:21 | NUR ---
SHIFT SUMMARY PT ALERT AND ORIENTED, FOLLOWING ALL COMMANDS, REMAINS WEAK AND DYSPNEIC WITH EXERTION BUT RECOVERS QUICKLY. PT PLACED ON NC AROUND 0830 THIS MORNING, SHE REMAINS ON NC RANGING FROM 2-4LPM c O2 SATS >90%. PT DENIES SOB AT REST. UP TO BEDSIDE COMMODE MULTIPLE TIMES TODAY WITH SBA, PT DID WELL WALKING. TOLERATING MEALS. NO BM TODAY. NO OTHER COMPLAINTS OR CONCERNS AT THIS TIME. VSS. WILL REPORT TO ONCOMING NURSE.
--- NOTE | 2022-08-25 21:09 | NUR ---
ASSUMPTION OF CARE THIS RN ASSUMED CARE OF PT AT 1900. PT SITTING UP IN BED, WATCHING TV. PLEASANT UPON INTERACTIONG. PT A&O X4; RESPONDING AND ANSWERING QUESTIONS APPROPRIATELY. PT DENIES SOB, CP OR PRESSURE. REPORTS STILL HAVING A COUGH, SMALL AMOUNT OF YELLOW/GREEN SPUTUM. VS; BP 115/88, AFIB W/HR OF 118, RR 17, SPO2 97% ON 4 L, 97.7 F TEMPORAL. THIS RN TITRATED PT TO 3 L. HR INCREASES TO 120 - 130 W/MOVEMENT BUT DOES NOT SUSTAIN. PT IS SUSTAINING 100'S TO 1 TEENS. PT DENIES SYMPTOMS. PT DOES NOT EXPRESS ANY CONCERNS OR NEEDS AT THIS TIME. CALL LIGHT IN REACH.
--- NOTE | 2022-08-26 06:27 | NUR ---
SHIFT SUMMARY NO ACUTE CHANGES THROUGHOUT SHIFT. VSS. THIS RN TITRATED O2 DOWN TO 2 L; SP02 MAINTAINED >95%. PT DENIES SOB. PT SLEPT ON AND OFF THROUGHOUT THE NIGHT. PT UP TO USE BSC W/MINIMAL ASSISTANCE. PT AFEBRILE THROUGHOUT SHIFT. NS INFUSING AT 100 ML PER ORDERS AND EMAR. WILL UPDATE ONCOMING AM RN. CALL LIGHT IN REACH
[2022-08-26 09:05] LABS: BASOPHILS ABSOLUTE AUTO 0.02 K/mm3 (0.00-0.23); BASOPHILS PERCENT AUTO 0 % (0-2); EOSINOPHILS ABSOLUTE AUTO 0.04 K/mm3 (0.00-0.68); EOSINOPHILS PERCENT AUTO 0 % (0-6); Hematocrit 50.6 % (33.0-51.0); Hemoglobin 16.5 g/dL (11.5-16.0); IMMATURE GRAN ABSOLUTE AUTO 0.04 K/mm3 (0.00-0.10); IMMATURE GRAN PERCENT AUTO 0 % (0-1); LYMPHOCYTES ABSOLUTE AUTO 0.85 K/mm3 (0.84-5.20); LYMPHOCYTES PERCENT AUTO 7 % (21-46); MONOCYTES ABSOLUTE AUTO 0.32 K/mm3 (0.16-1.47); MONOCYTES PERCENT AUTO 3 % (4-13); Mean Corpuscular HGB 29.4 pg (26.0-34.0); Mean Corpuscular HGB Conc 32.6 g/dL (31.5-36.5); Mean Corpuscular Volume 90 fL (80-100); Mean Platelet Volume 10.6 fL (9.1-12.4); NEUTROPHILS ABSOLUTE AUTO 10.81 K/mm3 (1.96-9.15); NEUTROPHILS PERCENT AUTO 90 % (41-73); Platelet Count 135 K/mm3 (150-400); RDW Coefficient Variation 15.2 % (11.7-14.2); RDW Standard Deviation 48.9 fL (35.1-46.3); Red Blood Cell Count 5.61 M/mm3 (3.80-5.20); White Blood Cell Count 12.08 K/mm3 (4.00-11.30)
[2022-08-26 09:28] LABS: Albumin, Blood 3.1 g/dL (3.4-5.0); Albumin/Globulin Ratio 0.9 (0.8-1.8); Bilirubin, Total 0.4 mg/dL (0.1-1.0); Bun/Creatinine Ratio 43.3 (12.0-20.0); Creatinine, Blood 1.5 mg/dL (0.40-1.00); Globulin, Blood 3.3 g/dL (2.2-4.0); Magnesium, Blood 2.4 mg/dL (1.6-2.4); Potassium, Blood 2.9 mmol/L (3.5-5.5); Total Protein, Blood 6.4 g/dL (6.4-8.2)
--- NOTE | 2022-08-26 10:35 | NUR ---
AM NOTE: PATIENT ALERT AND ORIENTED X4. PERRLA, WEARING GLASSES. CHRONIC NUMBNESS TO BILATERAL FEET. UP WITH FWW AND SBA. UP TO CHIAR THIS AM AND 2 WALKS AROUND HER ROOM. PATIENT STATES SHE HAS SMALL EPISODES OF DIZZINESS UPON GETTING UP. HR UP TO 130'S WITH ACTIVITY. ON 2L NASAL CANNULA SATING ABOVE 95%. DENIES COUGH. LUNGS SOUNDING CLEAR/DIM. TELE SHOWING AFIB WITH HR 90-110'S AT REST AND UP TO 130'S WITH ACTIVITY. DENIES CHEST PAIN/PRESSURE. BP ON SOFTER SIDE. NO SIGNS OF EDEMA. EATING WNL. DENIES ABDOMINAL PAIN/NAUSEA. USING BSC TO VOID WITH SBA. DR. DORANTES BY THIS AM, UPDATED ON AM LABS AND POTASSIUM OF 2.9. DISCONTINUED NS. CALL LIGHT IN REACH. WILL CONTINUE TO MONITOR.
--- NOTE | 2022-08-26 16:59 | NUR ---
DR. DORANTES CALLED TO UPDATE ON HR 110-120'S AND SOFT BP. MANUAL BP TAKEN. PATIENT NONSYMPTOMATIC WITH HR. NO NEW ORDERS FOR THIS RN TO PLACE. WILL CONTINUE TO MONITOR.
--- NOTE | 2022-08-26 18:01 | NUR ---
SHIFT SUMMARY: SEE PREVIOUS NOTE FOR UPDATES. PATIENT REMAINS ON 2L NASAL CANNULA SATING MID 90'S. AFIB WITH HR 90-130'S. SEE PREVIOUS NOTES FOR UPDATES TO DR. DORANTES. ATENOLOL GIVEN AT 1700. SEE CHARTED HR FOR TREND. PATIENT DENIES CHEST PAIN/PRESSURE/PALPITATIONS. BP REMAINS SOFT THROUGHOUT SHIFT. PATIENT EATING AND DRINKING WNL. UP TO BSC/BATHROOM WITH ONE PERSON ASSIST AND FRONT WHEEL WALKER. DAUGHTER AND SON INTODAY AND BOTH UPDATED. WILL CONTINUE TO MONITOR AND REPORT OFF TO ONCOMING RN.
--- NOTE | 2022-08-26 19:01 | NUR ---
PATIENT CONVERTED TO SINUS RHYTHM AT 1806, HR 60-70'S. PATIENT ASLEEP.
--- NOTE | 2022-08-26 20:43 | NUR ---
CARE ASSUMPTION: PATIENT O2 SAT >92% ON HOME DOSE 2L NC. BP SOFT, MAP >65. AFEBRILE. DENIES CHEST PAIN/N/V/D. ENDORSES "A LITTLE" SOB THAT "IS NORMAL" FOR PATIENT. A&O X4. PLEASANT AND COOPERATIVE. MEDICATED PER EMAR. BED LOW WITH CALL LIGHT IN REACH.
[2022-08-27 06:08] LABS: BASOPHILS ABSOLUTE AUTO 0.01 K/mm3 (0.00-0.23); BASOPHILS PERCENT AUTO 0 % (0-2); EOSINOPHILS ABSOLUTE AUTO 0.01 K/mm3 (0.00-0.68); EOSINOPHILS PERCENT AUTO 0 % (0-6); Hematocrit 45.1 % (33.0-51.0); Hemoglobin 14.5 g/dL (11.5-16.0); IMMATURE GRAN ABSOLUTE AUTO 0.04 K/mm3 (0.00-0.10); IMMATURE GRAN PERCENT AUTO 0 % (0-1); LYMPHOCYTES ABSOLUTE AUTO 0.68 K/mm3 (0.84-5.20); LYMPHOCYTES PERCENT AUTO 8 % (21-46); MONOCYTES ABSOLUTE AUTO 0.51 K/mm3 (0.16-1.47); MONOCYTES PERCENT AUTO 6 % (4-13); Mean Corpuscular HGB 28.9 pg (26.0-34.0); Mean Corpuscular HGB Conc 32.2 g/dL (31.5-36.5); Mean Corpuscular Volume 90 fL (80-100); Mean Platelet Volume 10.8 fL (9.1-12.4); NEUTROPHILS ABSOLUTE AUTO 7.71 K/mm3 (1.96-9.15); NEUTROPHILS PERCENT AUTO 86 % (41-73); Platelet Count 148 K/mm3 (150-400); RDW Standard Deviation 48.9 fL (35.1-46.3); Red Blood Cell Count 5.02 M/mm3 (3.80-5.20); White Blood Cell Count 8.96 K/mm3 (4.00-11.30)
--- NOTE | 2022-08-27 06:28 | NUR ---
SHIFT SUMMARY: PATIENT VS WNL ON BASELINE 2L NC. PATIENT AMBULATED SBA TO TOILET X2. SLEPT >7 HRS. PLEASANT AND COOPERATIVE WITH CALL. USES CALL LIGHT APPROPRIATELY. NO ADVERSE EVENTS THIS SHIFT. MEDICATED PER EMAR. WILL CONTINUE TO MONITOR UNTIL REPORT TO DAY RN.
[2022-08-27 06:33] LABS: Bun/Creatinine Ratio 42.5 (12.0-20.0); Calcium, Blood 8.8 mg/dL (8.5-10.1); Creatinine, Blood 1.74 mg/dL (0.40-1.00); Potassium, Blood 4.5 mmol/L (3.5-5.5)
[2022-08-27] MEDS ORDERED: ATEN50 PO ×2 (12:33)
[2022-08-27] MEDS ORDERED: OSEL75CA PO ×2 (12:34)
--- NOTE | 2022-08-27 13:40 | NUR ---
PT DISCHARGED HOME WITH FAMILY. PT ABLE TO AMBULATE AND GET HERSELF DRESSED. IV REMOVED. DISCHARGE TEACHING REVIEWED INCLUDING EDUCATION, FOLLOW UP APPOINTMENT AND MEDICATION LIST, PT AND FAMILY STATE THEY HAVE NO QUESTIONS OR CONCERNS AT THIS TIME. ALL BELONGINGS SENT HOME WITH PT. NO FURTHER DISCHARGE NEEDS IDENTIFIED AT THIS TIME.
== END 2022-08-27 13:42 | disposition home or self-care (01) | DRG 193 ==
LOC: ER 15:46 → PCU 15:47
PROVIDERS: Emergency Medicine; Family Medicine; Internal Medicine; Nurse Practitioner Acute Care; Physician Assistant; ADMIT Family Medicine
PROC: 5A09357 Assistance with Respiratory Ventilation, Less than 24 Consecutive Hours, Continuous Positive Airway Pressure (ICD-10-PCS; principal; 2022-08-24)
DX: J10.1 Influenza due to other identified influenza virus with other respiratory manifestations (principal); J96.21 Acute and chronic respiratory failure with hypoxia; D80.1 Nonfamilial hypogammaglobulinemia; I13.0 Hypertensive heart and chronic kidney disease with heart failure and stage 1 through stage 4 chronic kidney disease, or unspecified chronic kidney disease; I50.22 Chronic systolic (congestive) heart failure; J44.1 Chronic obstructive pulmonary disease with (acute) exacerbation; E78.5 Hyperlipidemia, unspecified; I48.91 Unspecified atrial fibrillation; M47.892 Other spondylosis, cervical region; M47.814 Spondylosis without myelopathy or radiculopathy, thoracic region; K21.9 Gastro-esophageal reflux disease without esophagitis; L40.9 Psoriasis, unspecified; M85.80 Other specified disorders of bone density and structure, unspecified site; F17.210 Nicotine dependence, cigarettes, uncomplicated; E86.0 Dehydration; M51.9 Unspecified thoracic, thoracolumbar and lumbosacral intervertebral disc disorder; E11.22 Type 2 diabetes mellitus with diabetic chronic kidney disease; N18.32 Chronic kidney disease, stage 3b; E87.6 Hypokalemia; I25.10 Atherosclerotic heart disease of native coronary artery without angina pectoris; I71.43 Infrarenal abdominal aortic aneurysm, without rupture; L30.9 Dermatitis, unspecified; Z20.822 Contact with and (suspected) exposure to COVID-19; Z85.72 Personal history of non-Hodgkin lymphomas; Z88.8 Allergy status to other drugs, medicaments and biological substances; Z79.899 Other long term (current) drug therapy; Z79.52 Long term (current) use of systemic steroids; Z79.01 Long term (current) use of anticoagulants; Z99.81 Dependence on supplemental oxygen; Z79.51 Long term (current) use of inhaled steroids; Z79.82 Long term (current) use of aspirin; Z79.02 Long term (current) use of antithrombotics/antiplatelets; Z98.890 Other specified postprocedural states; Z98.51 Tubal ligation status; Z90.710 Acquired absence of both cervix and uterus; Z95.5 Presence of coronary angioplasty implant and graft
CPT/HCPCS: 0241U; 36415; 71045; 80048; 80053; 83036; 83735; 83880; 84484; 85025; 85027; 93005; 93010; 94640; 94660; 94664; 94762; 96374; 96375; 97110; 97162; 97165; 97535; 99285-25; A9270; G0378; J1940; J2930; J7030; J7512

== ENCOUNTER 2022-11-29 06:30 | Observation (INO) | payer MEDICARE, OTHER ==
[~2022-11-29] VITALS: Ht 160 cm; Wt 79.0 kg
[~2022-11-29 06:30] MED LIST changes: -ALBU90OI; +ALBU90OI INH; +ATEN50 PO; +METO25ER PO; +OSEL75CA PO
--- NOTE | 2022-11-29 17:42 | NUR ---
SHIFT SUMMARY PT ARRIVED PT TO PCU 2 @ APPROX 1215 FROM THE CONFERENCE PLANNER, POST STENT PLACEMENT. PT A/O X4. PLEASANT AND COOPERATIVE WITH CARE. SHE ARRIVED ON 2LPM. THIS RN ATTEMPTED TO TITRATE IT HER OFF O2, SHE REPORTS ONLY USING 2LPM AT NIGHT. PT TOLERATED RA WHILE AWAKE, BUT APPEARED TO BE DOSING OFF IN THE ROOM AND WOULD DESATURATE TO THE MID 80'S. PT ON 2LPM AT THIS TIME. HER LUNGS ARE COARSE THROUGHOUT. SHE HAS AN INFREQUENT PRODUCTIVE COUGH THAT SHE STATES IS NORMAL FOR HER. RESPIRATIONS ARE EVEN AND UNLABORED. SHE SHOWS SINUS RHYTHM IN THE 60-70'S ON TELE. DENIES ANY ANGINA OR CHEST PRESSURE. PER [facility] RN, PT HAS STENT PLACEMENT X2. SHE HAS HX OF 2 PREVIOUS STENTS. SHE HAS A RIGHT RADIAL ACCESS SITE AND A RAC VENOUS ACCESS SITE. SHE ARRIVED 12ML IN THE TR BAND. SIMONA, SYNTHETIC CLOTH BINDING CUTTER, TOOK INITIAL 2ML'S OUT @ APPROX 1630. THIS RN TOOK AN ADDITIONAL 2ML'S OUT @1700 AFTER EXAMINING THE SITE AND NO DRAINAGE WAS NOTED. APPROX 10MIN LATER, MINIMAL DRAINAGE WAS NOTED, SO 2ML'S OF AIR WAS REPLACED INTO THE TR BAND. PT RAC CONTINUES TO OOZE. [facility] PLACED GUAZE, TEGARDERM AND COBAN OVER THE SITE. @APPROX 1700, THIS RN REPLACED DRESSING AND APPLIED PRESSURE DIRECTLY TO SITE. WILL CONTINUE TO MONITOR SITE FOR INCREASED BLEEDING. PT ABLE TO TRANSFER TO [facility] [place] WITH 1PA AND TOLERATED WELL. PT'S CALL LIGHT IS WITHIN REACH. WILL CONTINUE TO CARE FOR PT AND REPORT TO ONCOMING RN.
--- NOTE | 2022-11-29 18:04 | NUR ---
[address] BURROWS REGARDING THE NEED FOR ADMITTING ORDERS. PT HOME MED REC IS COMPLETED. UPON ASSESSMENT, PT STATES SHE DOES NOT WISH TO BE INTUBATED BUT IS OK WITH CPR IN THE EVENT OF AN EMERGENCY. NO DNI ORDER IN PLACE YET. THIS RN WILL REPORT ON TO POLYMERIZATION HELPER RN IF UNABLE TO REACH DR BURROWS BEFORE END OF SHIFT.
[2022-11-30 04:07] LABS: BASOPHILS ABSOLUTE AUTO 0.05 K/mm3 (0.00-0.23); BASOPHILS PERCENT AUTO 1 % (0-2); EOSINOPHILS ABSOLUTE AUTO 0.18 K/mm3 (0.00-0.68); EOSINOPHILS PERCENT AUTO 3 % (0-6); Hematocrit 39.5 % (33.0-51.0); Hemoglobin 12.5 g/dL (11.5-16.0); IMMATURE GRAN ABSOLUTE AUTO 0.02 K/mm3 (0.00-0.10); IMMATURE GRAN PERCENT AUTO 0 % (0-1); LYMPHOCYTES ABSOLUTE AUTO 1.07 K/mm3 (0.84-5.20); LYMPHOCYTES PERCENT AUTO 17 % (21-46); MONOCYTES PERCENT AUTO 8 % (4-13); Mean Corpuscular HGB 29.6 pg (26.0-34.0); Mean Corpuscular HGB Conc 31.6 g/dL (31.5-36.5); Mean Corpuscular Volume 93 fL (80-100); NEUTROPHILS ABSOLUTE AUTO 4.64 K/mm3 (1.96-9.15); NEUTROPHILS PERCENT AUTO 72 % (41-73); RDW Coefficient Variation 15.7 % (11.7-14.2); RDW Standard Deviation 53.7 fL (35.1-46.3); Red Blood Cell Count 4.23 M/mm3 (3.80-5.20); White Blood Cell Count 6.46 K/mm3 (4.00-11.30)
[2022-11-30 04:08] LABS: Mean Platelet Volume 10.3 fL (9.1-12.4); Platelet Count 162 K/mm3 (150-400)
[2022-11-30 04:13] LABS: Bun/Creatinine Ratio 30.1 (12.0-20.0); Creatinine, Blood 1.03 mg/dL (0.40-1.00); Potassium, Blood 4.6 mmol/L (3.5-5.5)
--- NOTE | 2022-11-30 06:38 | NUR ---
LEAD SHAREPOINT DEVELOPER SUMMARY ASSUMED CARE OF THE PT AT 1900. SHE IS ALERT AND ORIENTED X4, COOPERATIVE WITH CARE. PT IS SBA TO BS. PT IS POST ANGIO, RIGHT RADIAL SITE RECOVERED. SHE DENIES ANY CHEST PAIN. HAS BEEN SINUS THROUGHOUT THE NIGHT. EKG DONE THIS AM SHOWS SOME INCREASED CA INTERVAL AND FIRST DEGREE HB. PT NORMALLY ON 2L BY NC AT NIGHT BUT REQUIRED 3L DUE TO DESATURATIONS AND SHORTNESS OF BREATH WHEN UP TO THE COMMODE. ANTICOAGULATION HELD LAST NOC DUE TO ORDERS FROM DR. BURROWS AND SOME DELAYED RECOVERY OF ANGIO SITE.
--- NOTE | 2022-11-30 07:17 | NUR ---
TR BAND DEFLATION STARTED AT 2019 - REMOVED 1 ML OF AIR WITH NO HEMATOMA, OOZING, OR PAIN. DEFLATED ANOTHER 1 ML OF AIR AT 2114 WITH NO HEMATOMA, OOZING OR PAIN. CMS INTACT DISTALLY. DEFLATED 2 MLS OF AIR AT 2220 WITH NO HEMATOMA, PAIN, OR OOZING. CMS INTACT DISTALLY. DEFLATED ANOTHER 2 MLS OF AIR AT 2254 WITH NO HEMATOMA, PAIN, OR OOZING. CMS INTACT. DEFLATED THE FINAL 3 MLS OF AIR AT 2337 WITH NO HEMATOMA, OOZING, OR PAIN. CMS INTACT, THOUGH SWELLING TO FINGERS NOTED. 0042 - REMOVED TR BAND AND CLEANED SITE. TEGADERM APPLIED. NO OOZING, HEMATOMA, OR PAIN. REMOVED PRESSURE DRESSING TO RIGHT AC. BRUISING NOTED BUT AREA SOFT AND WITHOUT PAIN.
[2022-11-30] MEDS ORDERED: CLOP75 PO (11:36)
[2022-11-30] MEDS ORDERED: AMLO5 PO (11:37)
--- NOTE | 2022-11-30 14:09 | NUR ---
DISCHARGE SUMMARY: PATIENT WAS DISCHARGED IN NO ACUTE DISTRESS. PATIENT WAS EDUCATED OVER DISCHARGE INSTRUCTIONS AND COMPLETE UNDERSTANDING COMPLETED. PATIENT LEFT VIA DAUGHTERS POV. IV'S REMOVED, AND TELE OFF. PATIENT DENIES CHEST PAIN PRESSURE OR SOB. PATIENT ON RA, DR. BURROWS AND RN BOTH ASSESSED SITE SITE CDI. PATIENT HAD NO FURTHER QUESTIONS COMMENTS OR CONCERNS. NO CONCERNS FROM THIS RN AT TIME OF DISCHARGE.
== END 2022-11-30 13:25 | disposition home or self-care (01) ==
LOC: MHTC 06:30 → PCU 11:48 → MHTC 11:51 → PCU 11:52
PROVIDERS: ADMIT Internal Medicine Cardiovascular Disease
DX: I25.10 Atherosclerotic heart disease of native coronary artery without angina pectoris (principal); I50.22 Chronic systolic (congestive) heart failure; N18.30 Chronic kidney disease, stage 3 unspecified; I11.0 Hypertensive heart disease with heart failure; Z88.8 Allergy status to other drugs, medicaments and biological substances; Z79.82 Long term (current) use of aspirin
CPT/HCPCS: 36415; 76937; 80048; 84484; 85025; 85347; 93005; 93010; 93460; 94760; 99152; 99153; A9270; C1725; C1769; C1874; C1887; C1894; C9600; G0378; J0153; J1644; J2250; J3010; J7030; J7050; Q9967

== ENCOUNTER 2022-12-19 07:51 | Day surgery (SDC) | payer MEDICARE, OTHER ==
[~2022-12-19] VITALS: Ht 157.5 cm; Wt 80.3 kg
[~2022-12-19 07:51] MED LIST changes: +AMLO5 PO; +CLOP75 PO; +HYDR1TAB94 PO; +LISI20 PO; +PANT40 PO; +TIOT18 INH
--- NOTE | 2022-12-19 09:22 | NUR ---
AFTER MEETING WITH PATEINT/FAMILY DR. ESPINO CANCELLED THE PROCEDURE. PIV REMOVED FROM THE ARM ADN PRESSURE DRESSING APPLIED AND CATH TIP INTACT. DISCHARGE INSTRUCTIONS WITH FOLLOW UP APPOINTMENT GIVEN TO THE PAITENT WITH MED RECONCILATION LIST AND PAITEN DISCAHRGED HOME WITH DAUGHTER VIA WHEELCHAIR.
== END 2022-12-19 10:38 | disposition home or self-care (01) ==
LOC: MHTC 07:51
DX: I25.10 Atherosclerotic heart disease of native coronary artery without angina pectoris (principal); E78.5 Hyperlipidemia, unspecified; J44.9 Chronic obstructive pulmonary disease, unspecified; I25.5 Ischemic cardiomyopathy; I08.1 Rheumatic disorders of both mitral and tricuspid valves; I77.9 Disorder of arteries and arterioles, unspecified; I12.9 Hypertensive chronic kidney disease with stage 1 through stage 4 chronic kidney disease, or unspecified chronic kidney disease; N18.9 Chronic kidney disease, unspecified; Z53.8 Procedure and treatment not carried out for other reasons; Z88.8 Allergy status to other drugs, medicaments and biological substances; Z88.4 Allergy status to anesthetic agent
CPT/HCPCS: J1644; J2250; J3010; J7030; J7050

== ENCOUNTER 2024-08-05 09:26 | Day surgery (SDC) | payer MEDICARE, OTHER ==
[~2024-08-05] VITALS: Ht 160 cm; Wt 83.0 kg
[2024-08-05] VITALS (8 sets, daily range): BP systolic 116–136; BP diastolic 64–106
[2024-08-05] MEDS ORDERED: NUJO60 ML TOP (10:07)
[2024-08-05] MEDS ORDERED: AMLO10 PO (10:08)
[2024-08-05] MEDS ORDERED: IPRAT-ALBUT 0.5-3 ML INH (10:08)
[2024-08-05] MEDS ORDERED: Aspirin 325 MG Tab ONE (10:09)
[2024-08-05] MEDS ORDERED: Nitroglycerin 2 MG/20 ML BTL ONE (10:18)
[2024-08-05] MEDS ORDERED: NS 250 ML IV ONE (10:18)
[2024-08-05] MEDS ORDERED: Verapamil HCL 2.5 MG/ML 2ML Injection ONE (10:18)
[2024-08-05] MEDS ORDERED: NS 2,000 ML IV ONE (10:18)
[2024-08-05] MEDS ORDERED: Heparin Sodium 1000 Units/ML 10ML MDV ONE ×2 (10:18→11:49)
[2024-08-05] MEDS ORDERED: FentaNYL Citrate 50 MCG/ML 2 ML Injection ONE ×2 (10:26→12:05)
[2024-08-05] MEDS ORDERED: Midazolam HCl 1MG / ML 2ML Vial ONE (10:26)
--- NOTE | 2024-08-05 12:35 | NUR ---
PT RETURNS TO RECOVERY ROOM, ALERT AND ORIENTED, VSS. PT. UP IN RECLINER, SNACKS PROVIDED. PT. TR BAND TO RIGHT RADIAL 12CC IN BAND, NO OOZING OR HEMATOMA. DISTAL CAP REFILL WNL.
--- NOTE | 2024-08-05 13:15 | NUR ---
PT SITE REMAINS UNCHANGED FROM INTITAL ASSESSMENT. SNACKS PROVIDED. PT. FAMILY AT BEDSIDE. VSS.
[2024-08-05] MEDS ORDERED: EZET10 PO (13:43)
--- NOTE | 2024-08-05 13:50 | NUR ---
TR BAND DEFLATED PER PROTOCOL. NO OOZING OR SWELLING NOTED. PT. VSS REMAIN STABLE. [place] [facility] [place]
--- NOTE | 2024-08-05 14:10 | NUR ---
PT discharge instructions reviewed in detail with pt and family. Pt IV removed, cathter intact. Right radial site remains wnl, no oozing or swelling at this time. Pt vss. new prescription faxed to [facility]. daughter assisting pt wiht getting dressed.
--- NOTE | 2024-08-05 14:27 | NUR ---
PT UP TO USE BATHROOM. TR BAND REMOVED, NO OOZING OR SWELLING FROM SITE. DAMARIS SIZED BRUISE AT INSERTION SITE. VSS AT THIS TIME. PT. IV REMOVED CATHTER INTACT. PT. DAUGHTER TO BRING CAR UP FOR PT RIDE HOME.
== END 2024-08-05 14:30 | disposition home or self-care (01) ==
LOC: MHTC 09:26
DX: I25.10 Atherosclerotic heart disease of native coronary artery without angina pectoris (principal); I25.82 Chronic total occlusion of coronary artery; I71.21 Aneurysm of the ascending aorta, without rupture; I12.9 Hypertensive chronic kidney disease with stage 1 through stage 4 chronic kidney disease, or unspecified chronic kidney disease; N18.9 Chronic kidney disease, unspecified; E78.5 Hyperlipidemia, unspecified; J44.9 Chronic obstructive pulmonary disease, unspecified; I48.0 Paroxysmal atrial fibrillation; Z87.891 Personal history of nicotine dependence; Z79.899 Other long term (current) drug therapy; Z88.4 Allergy status to anesthetic agent; Z88.8 Allergy status to other drugs, medicaments and biological substances
CPT/HCPCS: 76937; 85347; 93458; 93571; 93572; 99152; 99153; A9270; C1769; C1887; C1894; J1644; J2250; J3010; J7030; J7050; Q9967

== ENCOUNTER 2024-09-07 20:57 | Inpatient (IN) | payer MEDICARE, OTHER ==
[~2024-09-07] VITALS: Ht 167.6 cm; Wt 79.8 kg
[~2024-09-07 20:57] MED LIST changes: +AMLO10 PO; +EZET10 PO; +IPRAT-ALBUT 0.5-3 ML INH; +Lactobacil 2-S.Thermo-Bifido 1 1 Cap PO SCH; +MethylPREDNISolone Sod Succ 125 MG Vial IV SCH; +Metoprolol Succinate 50 MG TABCR PO SCH; +NUJO60 ML TOP
[2024-09-07] MEDS ORDERED: Albuterol 2.5 MG/3 ML VIAL INH SCH (21:05)
[2024-09-07] MEDS ORDERED: MethylPREDNISolone Sod Succ 125 MG Vial IV ONE (21:05)
[2024-09-07] MEDS ORDERED: LORazepam 2 MG/ML 1ML Injection IV ONE (21:05)
[2024-09-07 21:19] LABS: Base Excess Venous -3.4 mmol/L; PCO2 Venous 77.3 mmHg (38-42)
[2024-09-07 21:22] LABS: pH Blood Venous 7.13 (7.34-7.37)
[2024-09-07 21:29] LABS: BASOPHILS ABSOLUTE AUTO 0.08 K/mm3 (0.00-0.23); BASOPHILS PERCENT AUTO 0 % (0-2); EOSINOPHILS ABSOLUTE AUTO 0.13 K/mm3 (0.00-0.68); EOSINOPHILS PERCENT AUTO 1 % (0-6); Hematocrit 44.8 % (33.0-51.0); Hemoglobin 13.7 g/dL (11.5-16.0); IMMATURE GRAN ABSOLUTE AUTO 0.17 K/mm3 (0.00-0.10); IMMATURE GRAN PERCENT AUTO 1 % (0-1); LYMPHOCYTES PERCENT AUTO 11 % (21-46); MONOCYTES ABSOLUTE AUTO 1.57 K/mm3 (0.16-1.47); MONOCYTES PERCENT AUTO 8 % (4-13); Mean Corpuscular HGB 29.1 pg (26.0-34.0); Mean Corpuscular HGB Conc 30.6 g/dL (31.5-36.5); Mean Corpuscular Volume 95 fL (80-100); Mean Platelet Volume 9.8 fL (9.1-12.4); NEUTROPHILS PERCENT AUTO 79 % (41-73); Platelet Count 376 K/mm3 (150-400); RDW Coefficient Variation 14.8 % (11.7-14.2); RDW Standard Deviation 51.8 fL (35.1-46.3); Red Blood Cell Count 4.71 M/mm3 (3.80-5.20); White Blood Cell Count 19.35 K/mm3 (4.00-11.30)
[2024-09-07 21:52] LABS: Albumin, Blood 3.1 g/dL (3.4-5.0); Albumin/Globulin Ratio 0.7 (0.8-1.8); Bilirubin, Total 0.4 mg/dL (0.1-1.0); Calcium, Blood 9.7 mg/dL (8.5-10.1); Creatinine, Blood 1.35 mg/dL (0.40-1.00); Globulin, Blood 4.7 g/dL (2.2-4.0); Potassium, Blood 4.6 mmol/L (3.5-5.5); Total Protein, Blood 7.8 g/dL (6.4-8.2)
[2024-09-07 21:53] LABS: CORONAVIRUS COVID-19 AG Negative (NEGATIVE); INFLUENZA A AG Negative (NEGATIVE); INFLUENZA B AG Negative (NEGATIVE)
[2024-09-07 22:11] LABS: Base Excess Venous -1.9 mmol/L; Bicarbonate Venous 22.1 mmol/L (24.0-30.0); PCO2 Venous 56.5 mmHg (38-42)
[2024-09-07 22:12] LABS: pH Blood Venous 7.26 (7.34-7.37)
[2024-09-07] MEDS ORDERED: FLU VACC TS2024-25(6MOS UP)/PF 45 MCG/0.5 ML SYRINGE IM SCH (23:25)
[2024-09-08] VITALS (7 sets, daily range): BP systolic 107–150; BP diastolic 68–84
[2024-09-08] MEDS ORDERED: Furosemide 10 MG/ML 4ML Vial IV SCH
[2024-09-08] MEDS ORDERED: CefTRIAXone Sodium 1,000 MG in NS 100 ML IV SCH (00:05)
[2024-09-08] MEDS ORDERED: Azithromycin 500 MG in NS 250 ML IV SCH (00:05)
[2024-09-08] MEDS ORDERED: Acetaminophen 325 MG TABLET PO PRN (00:05)
[2024-09-08] MEDS ORDERED: Misc. Topical TOP SCH (01:00)
[2024-09-08] MEDS ORDERED: NS 250 ML IV PRN (01:30)
[2024-09-08] MEDS ORDERED: MethylPREDNISolone Sod Succ 125 MG Vial IV SCH (01:40)
[2024-09-08] MEDS ORDERED: Metoprolol Succinate 50 MG TABCR PO SCH (01:40)
[2024-09-08 06:11] LABS: Hematocrit 39.5 % (33.0-51.0); Hemoglobin 12.5 g/dL (11.5-16.0); Mean Corpuscular HGB 29.6 pg (26.0-34.0); Mean Corpuscular HGB Conc 31.6 g/dL (31.5-36.5); Mean Corpuscular Volume 93 fL (80-100); Mean Platelet Volume 9.4 fL (9.1-12.4); Platelet Count 229 K/mm3 (150-400); RDW Coefficient Variation 14.8 % (11.7-14.2); RDW Standard Deviation 50.8 fL (35.1-46.3); Red Blood Cell Count 4.23 M/mm3 (3.80-5.20); White Blood Cell Count 10.05 K/mm3 (4.00-11.30)
--- NOTE | 2024-09-08 06:34 | NUR ---
PT ARRIVED BY STRETCHE FROM ER AND WAS TRANSFERRED OVER TO BED. PT ON BIPAP PRIOR TO TRANSFER AND TOLERATING WELL. PT TRANSITIONED TO OXY MASK FOR TRANSFER FROM STRETCHER TO BED AND TO ANSWER ORIENTATION QUESTIONS. PT SPO2 ON MASK REMAINED GREATER THAN 95%. PT DOES APPEAR MILDLY DYSPNEIC BUT IS ABLE TO SPEAK IN FULL SENTENCES. PT ABLE TO ANSWER QUESTIONS APPROPRIATELY AND IS AOX4, LUNGS DIM WITH EXPIRATORY WHEEZE TO BASES B/L. NO PERIPHERAL EDEMA NOTED. PT PLACED ON BIPAP 14 / 8 AT 35% FIO2 AFTER ADMIT COMPLETED AND HAS REMAINED ON SINCE THEN. PT WAS ABLE TO TAKE PO SAFELY W/O S/S ASPIRATION/CHOKING. PT DENTURES WITH FAMILY AT TIME OF ADMIT. PT TOLERATING IV ABX WELL. NO SKIN BREAKDOWN BUT DOES HAVE PSORIASIS PATCHES TO SCALP AND B/L EARS. PUREWICK IN PLACE WITH GOOD OUPUT TO LIMIT EXERTION PT IS DYSPNEIC WITH EXERTION.
[2024-09-08 06:37] LABS: Calcium, Blood 9.5 mg/dL (8.5-10.1); Creatinine, Blood 1.43 mg/dL (0.40-1.00); Potassium, Blood 4.8 mmol/L (3.5-5.5)
[2024-09-08] MEDS ORDERED: Insulin Human Lispro 100 Units/ML 3ML Syringe SC SCH (07:30)
[2024-09-08] MEDS ORDERED: Ipratropium/Albuterol SulF 2.5-0.5MG/3 ML Amp INH SCH ×2 (08:25)
[2024-09-08] MEDS ORDERED: Albuterol 2.5 MG/3 ML VIAL INH PRN ×2 (08:25)
[2024-09-08] MEDS ORDERED: Aspirin 81 MG Chew PO SCH (09:00)
[2024-09-08] MEDS ORDERED: Cholecalciferol 1000 Unit Tablet (=25MCG) PO SCH (09:00)
[2024-09-08] MEDS ORDERED: Lactobacil 2-S.Thermo-Bifido 1 1 Cap PO SCH (09:00)
[2024-09-08] MEDS ORDERED: AmLODIPine Besylate 5 MG Tab PO SCH ×2 (09:00→21:00)
[2024-09-08] MEDS ORDERED: Spironolactone 25 MG Tab PO SCH (09:00)
--- NOTE | 2024-09-08 18:02 | NUR ---
SHIFT SUMMARY PT A&Ox4, CALLS AND COMMUNICATES NEEDS APPROPRIATELY. BP STABLE, SINUS 80'S, DENIES CP/PRESSURE. SpO2> 92% 1L VIA NC, DESATS TO 88% WHEN ON RA, BIPAP 14/6 35% FiO2 IN STANDBY AT BEDSIDE. NO C/O PAIN. Q2 TURNS PROVIDED. PUREWICK IN PLACE. NO OTHER EVENTS, WILL REPORT TO ONCOMING RN.
--- NOTE | 2024-09-08 19:49 | NUR ---
ASSUMED CARE OF THIS PATIENT AT 1900. PATIENT IS ALERT AND ORIENTATED X4 SITTING ON IN BED DURING BEDSIDE SHIFT REPORT. SHE IS ON 1 LITER OF OXYGEN VIA NC. LEFT AC IV FLUSHES WELL. PATIENT WAS TRANSFERED TO A WHEEL CHAIR TO GO DOWN TO IMAGINING. JUST ARRIVED BACK TO THE ROOM. PURWIKE IN PLACE AND WORKING WELL FOR PATIENT. CALL LIGHT IN REACH
[2024-09-08 20:38] LABS: Base Excess Venous 6.8 mmol/L; Bicarbonate Venous 29.8 mmol/L (24.0-30.0); PCO2 Venous 44.6 mmHg (38-42); pH Blood Venous 7.45 (7.34-7.37)
[2024-09-08] MEDS ORDERED: Famotidine 20 MG Tab PO SCH (21:00)
--- NOTE | 2024-09-08 22:31 | NUR ---
RT ATTEMPTED TO START SLEEP STUDY, PT EXPRESSED BEING VERY NERVOUS ABOUT DOING THE STUDY BECAUSE SHE IS SO SHORT OF BREATH AND DOESN'T WANT TO DO THE STUDY SHE FURTHER STATED SHE WANTED TO WEAR THE BIPAP. STUDY HELD PT PLACED ON BIPAP.
[2024-09-09] VITALS (10 sets, daily range): BP systolic 52–149; BP diastolic 18–111
[2024-09-09 04:13] LABS: BASOPHILS PERCENT AUTO 0 % (0-2); EOSINOPHILS PERCENT AUTO 0 % (0-6); Hematocrit 41.8 % (33.0-51.0); Hemoglobin 13.4 g/dL (11.5-16.0); IMMATURE GRAN ABSOLUTE AUTO 0.09 K/mm3 (0.00-0.10); IMMATURE GRAN PERCENT AUTO 1 % (0-1); LYMPHOCYTES ABSOLUTE AUTO 0.46 K/mm3 (0.84-5.20); LYMPHOCYTES PERCENT AUTO 5 % (21-46); MONOCYTES ABSOLUTE AUTO 0.32 K/mm3 (0.16-1.47); MONOCYTES PERCENT AUTO 3 % (4-13); Mean Corpuscular HGB 29.3 pg (26.0-34.0); Mean Corpuscular HGB Conc 32.1 g/dL (31.5-36.5); Mean Corpuscular Volume 92 fL (80-100); Mean Platelet Volume 9.6 fL (9.1-12.4); NEUTROPHILS ABSOLUTE AUTO 9.44 K/mm3 (1.96-9.15); NEUTROPHILS PERCENT AUTO 92 % (41-73); Platelet Count 251 K/mm3 (150-400); RDW Coefficient Variation 14.8 % (11.7-14.2); RDW Standard Deviation 49.4 fL (35.1-46.3); Red Blood Cell Count 4.57 M/mm3 (3.80-5.20); White Blood Cell Count 10.31 K/mm3 (4.00-11.30)
--- NOTE | 2024-09-09 06:23 | NUR ---
SHIFT SUMMARY PATIENT IS A+O X4, ABLE TO MAKE NEEDS KNOWN. WEARS 1 LITER NC WHILE AWAKE, AND BIPAP WHILE SLEEPING. SLEEP STUDY WAS NOT DONE DURING THIS SHIFT. PATIENT CONTINUES TO HAVE SOB INTERMIT. REPOSTIONED PATIENT FOR COMFORT. PUREWICK IN PLACE DRAINING TO SUCTION. NO ACUTE EVENTS. CALL LIGHT IN REACH, WILL REPORT TO ONCOMING RN.
[2024-09-09 07:03] LABS: Albumin, Blood 3.1 g/dL (3.4-5.0); Albumin/Globulin Ratio 0.7 (0.8-1.8); Bilirubin, Total 0.2 mg/dL (0.1-1.0); Calcium, Blood 10.3 mg/dL (8.5-10.1); Creatinine, Blood 1.23 mg/dL (0.40-1.00); Globulin, Blood 4.5 g/dL (2.2-4.0); Magnesium, Blood 2.1 mg/dL (1.6-2.4); Potassium, Blood 3.9 mmol/L (3.5-5.5); Total Protein, Blood 7.6 g/dL (6.4-8.2)
[2024-09-09] MEDS ORDERED: BUPROPION XL150 M1 PO (07:49)
[2024-09-09] MEDS ORDERED: ELIQUIS5 M3 PO (07:51)
[2024-09-09] MEDS ORDERED: buPROPion HCL 150 MG TAB.SR.12H PO SCH (09:30)
[2024-09-09] MEDS ORDERED: Apixaban 5 MG Tab PO SCH (09:30)
--- NOTE | 2024-09-09 18:00 | NUR ---
SHIFT SUMMARY PT A&Ox4, CALLS AND COMMUNCIATES NEEDS APPROPRIATELY. BP STABLE DURING FIRST HALF OF SHIFT. MILDLY ELEVATED WITH SBP 140-150's THIS AFTERNOON/EVENING, PHYSICIAN NOTIFIED, INSTRUCTED TO ADMINISTER 2100 DOSE OF PO AMLODIPINE 10mg EARLY, MEDICATION ADMINISTERED PER EMAR. SINUS 80's w/ A FEW SHORT FUNS OF V-TACH, ASYMPTOMATIC, DENIES CP/PRESSURE. SpO2> 92% 2L VIA NC, BIPAP AT BEDSIDE TO USE WHEN SLEEPING, REPORTS INTERMITTENT SOB THAT HAS IMPROVED THROUGHOUT SHIFT. NO C/O PAIN. FAMILY AT BEDSIDE THROUGHOUT SHIFT. NO OTHER EVENTS.
[2024-09-09] MEDS ORDERED: Morphine Sulfate 4 MG/1 ML Injection ONE ×2 (18:14→18:31)
[2024-09-09] MEDS ORDERED: Morphine Sulfate 4 MG/1 ML Injection IV ONE ×2 (18:15→18:35)
--- NOTE | 2024-09-09 18:37 | NUR ---
"Rapid Response | [facility] Pt. is being attended by RR Team. Family arrives in the hallway when I meet them. We are ushered to bedside. Family requested prayer at the bedside. Prayed for Pt. and family. Since this roll forming machine set up operator was bumping up into a shift change, I notified the charge nurse that I would give the on-call roll forming machine set up operator a heads up. Communicated possibility of a callback to the on-call roll forming machine set up operator."
[2024-09-09] MEDS ORDERED: Scopolamine Hydrobromide Patch TOP PRN (18:45)
[2024-09-09] MEDS ORDERED: Atropine Sulfate 1% Opth Soln 2ML BTL SL PRN (18:45)
[2024-09-09] MEDS ORDERED: Acetaminophen 650 MG Supp PR PRN (18:45)
[2024-09-09] MEDS ORDERED: Haloperidol Lactate Inj. 5 MG/ML Injection IV PRN (18:45)
[2024-09-09] MEDS ORDERED: Ondansetron HCl 2 MG / ML 2ML Vial IV PRN (18:50)
[2024-09-09] MEDS ORDERED: Morphine Sulfate 10 MG/ML 1MLSYR IV PRN (18:50)
[2024-09-09] MEDS ORDERED: HYDROmorphone HCl/Pf 1MG SYR IV PRN (18:50)
[2024-09-09] MEDS ORDERED: Promethazine HCl 25 MG Tab PO PRN (18:50)
[2024-09-09] MEDS ORDERED: LORazepam 2 MG/ML 1ML Injection IV PRN (18:50)
--- NOTE | 2024-09-09 19:56 | NUR ---
RAPID RESPONSE THIS RN SITTING OUTSIDE OF PTs ROOM CHARTING, AT APPROXIMATELY 1810 THIS RN HEARD PT MAKE A NOISE OF DISCOMFORT, THIS RN IMMEDICATELY ENTERED ROOM TO CHECK ON PT. PT PALE, INCREASED WORK OF BREATHING, WITH C/O OF PAIN IN CHEST AND BACK. THIS RN URGENT CALLED SHIFT STACKER ON [facility] AND ASKED TO COME TO BEDSIDE. SHIFT STACKER TO BEDSIDE - NOTIFIED PHYSICIAN, PT SUPINE, DIFFICULT TO OBTAIN BP, NRB PLACED, PT GRADUALLY LOSING CONSCIOUSNESS, DNR CODE STATUS - RAPID RESPONSE CALLED AT 1814. RAPID RESPONSE TEAM TO BEDSIDE, PHYSICIAN NOT AT BEDSIDE. FAMILY TALKING IN HALLWAY, NOTIFIED OF PT STATUS AND TO BEDSIDE. PHYSICIAN TO BEDSIDE, SEE EMAR FOR MEDICATIONS ADMINISTERED. THIS RN REMAINED AT BEDSIDE WITH PT AND FAMILY UNTIL TIME OF .
== END 2024-09-09 20:55 | DRG 871 ==
LOC: ER 20:57 → ERHOLD 23:24 → PCU 23:24
PROVIDERS: Emergency Medicine; Family Medicine; Student in an Organized Health Care Education/Training Program; ADMIT Internal Medicine
PROC: 5A09357 Assistance with Respiratory Ventilation, Less than 24 Consecutive Hours, Continuous Positive Airway Pressure (ICD-10-PCS; principal; 2024-09-07)
PROC: 3E03329 Introduction of Other Anti-infective into Peripheral Vein, Percutaneous Approach (ICD-10-PCS; 2024-09-08)
DX: A41.9 Sepsis, unspecified organism (principal); I50.23 Acute on chronic systolic (congestive) heart failure; J96.21 Acute and chronic respiratory failure with hypoxia; J96.22 Acute and chronic respiratory failure with hypercapnia; Z51.5 Encounter for palliative care; Z66 Do not resuscitate; I71.11 Aneurysm of the ascending aorta, ruptured; J44.1 Chronic obstructive pulmonary disease with (acute) exacerbation; I47.20 Ventricular tachycardia, unspecified; I13.0 Hypertensive heart and chronic kidney disease with heart failure and stage 1 through stage 4 chronic kidney disease, or unspecified chronic kidney disease; D80.1 Nonfamilial hypogammaglobulinemia; C83.3A Diffuse large B-cell lymphoma, in remission; R65.20 Severe sepsis without septic shock; I25.10 Atherosclerotic heart disease of native coronary artery without angina pectoris; F17.210 Nicotine dependence, cigarettes, uncomplicated; N18.30 Chronic kidney disease, stage 3 unspecified; E11.22 Type 2 diabetes mellitus with diabetic chronic kidney disease; I48.0 Paroxysmal atrial fibrillation; I72.8 Aneurysm of other specified arteries; E78.5 Hyperlipidemia, unspecified; M85.80 Other specified disorders of bone density and structure, unspecified site; L40.9 Psoriasis, unspecified; F41.9 Anxiety disorder, unspecified; I71.43 Infrarenal abdominal aortic aneurysm, without rupture; Z88.8 Allergy status to other drugs, medicaments and biological substances; Z79.01 Long term (current) use of anticoagulants; Z79.82 Long term (current) use of aspirin; Z99.81 Dependence on supplemental oxygen; Z92.21 Personal history of antineoplastic chemotherapy; Z95.5 Presence of coronary angioplasty implant and graft
CPT/HCPCS: 36415; 71045; 71275; 80048; 80053; 82803; 82947; 83735; 83880; 84145; 84484; 85025; 85027; 87040; 87428-QW; 92526; 92610; 93005; 93010; 93306; 94640; 94644; 94660; 94664; 94762; 96374; 96375; 99285-25; A9270; J0456; J0696; J1940; J2060; J2270; J2919; J7050; Q9967